=== PATIENT | female | born 1965 | race Asian ===

== ENCOUNTER 2016-04-28 08:54 | Emergency (ER) | payer SELFPAY ==
[~2016-04-28] VITALS: Ht 152.4 cm; Wt 60.0 kg
[2016-04-28 08:57] VITALS: BP 175/92; PULSE 102; RESP 16; TEMP 98.1; O2SAT 97
[2016-04-28 09:12] VITALS: BP 158/92; PULSE 76; RESP 18; O2SAT 96
[2016-04-28] MEDS ORDERED: GLYB2.5T3 PO (09:25)
[2016-04-28] MEDS ORDERED: TRAM50TA PO ×2 (09:25→12:10)
[2016-04-28] MEDS ORDERED: META1TAB19 PO (09:25)
[2016-04-28] MEDS ORDERED: NAPR500T PO (09:25)
--- NOTE | 2016-04-28 09:29 | PD ---
HPI Chief Complaint: Pain: Acute or Chronic Time Seen by Provider: 09:13 Travel History International Travel<30 days: No Contact w/Intl Traveler<30days: No Traveled to known affect area: No History of Present Illness HPI Patient is a 50-year-old female with history of chronic neuropathy, diabetes, presents to the emergency room with complaints of nerve pain. Patient reports that for the past 2 months, she has had increased numbness to her right and left lower extremity. Reports that she has increased "achyness" to her right lower extremity but no calf pain. Reports "it just feels like a nerve pain." Reports that she feels numb to the bottom of her feet, reports that this has been persistent. Patient reports that she has history of painful neuropathy, reports that sometimes she feels numbness to both her arms, reports that she was seen in urgent care previously for this, reports that she was given a prescription for some muscle relaxers, reports that the medicines helped somewhat, but only lasts for a short time. Patient reports that she is a diabetic, reports that she does not check her blood sugars, reports that her blood sugars could be high as she has not checked her sugars lately. Patient does admit to being compliant with her diabetic medications. Patient denies headache or dizziness. Patient denies vision changes. Patient denies sensation of lightheadedness. Patient denies chest pain or shortness of breath. Patient denies abdominal pain, reports some nausea with no vomiting. Patient denies fevers or chills. PFSH Past Medical History Diabetes: Yes Headaches: Yes ?: Not LMP: 2011 Past Surgical History Other Surgery: Yes (ectopic ) Family History Family History: Negative Social History Alcohol Use: No Tobacco Use: No Substance Use: No Allergies-Medications (Allergen,Severity, Reaction): Coded Allergies: No Known Allergies (Unverified , 04/28/16) Reported Meds & Prescriptions Reported Meds & Active Scripts Active Macrobid (Nitrofurantoin Monoh/Nitrofur Macro) 100 Mg Cap 100 Mg PO BID 10 Days Reported Naproxen 500 Mg Tab 500 Mg PO BID Tramadol (Tramadol HCl) 50 Mg Tab 50 Mg PO Q6H PRN Metaxalone 800 Mg Tab 800 Mg PO TID Glyburide 2.5 Mg Tab 5 Mg PO DAILY Take with meals at the same time each day Review of Systems General / Constitutional: No: Fever Eyes: No: Visual changes HENT: No: Headaches Cardiovascular: No: Chest Pain or Discomfort Respiratory: No: Shortness of Breath Gastrointestinal: Positive: Nausea, No: Abdominal Pain Genitourinary: No: Dysuria Musculoskeletal: No: Pain Skin: No Rash Neurologic: Positive: Paresthesia, No: Weakness Psychiatric: No: Depression Endocrine: No: Polydipsia Hematologic/Lymphatic: No: Easy Bruising Physical Exam Narrative GENERAL: No acute distress, nontoxic SKIN: Warm and dry. HEAD: Atraumatic. Normocephalic. EYES: Pupils equal and round. No scleral icterus. No injection or drainage. ENT: No nasal bleeding or discharge. Mucous membranes pink and moist. NECK: Trachea midline. No JVD. CARDIOVASCULAR: Regular rate and rhythm. No murmur appreciated. RESPIRATORY: No accessory muscle use. Clear to auscultation. Breath sounds equal bilaterally. GASTROINTESTINAL: Abdomen soft, non-tender, nondistended. Hepatic and splenic margins not palpable. MUSCULOSKELETAL: No obvious deformities. No clubbing. No cyanosis. No edema. NEUROLOGICAL: Awake and alert. No obvious cranial nerve deficits. Motor grossly within normal limits. Normal speech. Cranial nerves II-12 grossly intact with no obvious deficits. PSYCHIATRIC: Appropriate mood and affect; insight and judgment normal. Data Data Last Documented VS Vital Signs Date Time Temp Pulse Resp B/P Pulse Ox O2 Delivery O2 Flow Rate FiO2 04/28/16 10:29 16 04/28/16 09:20 96 04/28/16 08:57 98.1 175/92 97 Room Air Orders Electrocardiogram (04/28/16 09:19) Complete Blood Count With Diff (04/28/16 09:19) Comprehensive Metabolic Panel (04/28/16 09:19) Ecg Monitoring (04/28/16 09:19) Iv Access Insert/Monitor (04/28/16 09:19) Sodium Chloride 0.9% Flush (Ns Flush) (04/28/16 09:30) Sodium Chlorid 0.9% 500 Ml Inj (Ns 500 M (04/28/16 09:30) Ketorolac Inj (Toradol Inj) (04/28/16 09:30) Ed Urine Pregnancytest Poc (04/28/16 09:19) Sodium Chlor 0.9% 1000 Ml Inj (Ns 1000 M (04/28/16 09:45) Insulin Human Nph Inj (Novolin N Inj) (04/28/16 09:45) Urinalysis - C+S If Indicated (04/28/16 10:37) Blood Glucose (04/28/16 10:51) Blood Glucose (04/28/16 11:51) Urine Culture (04/28/16 10:00) Ceftriaxone Inj (Rocephin Inj) (04/28/16 11:30) Sodium Chlor 0.9% 1000 Ml Inj (Ns 1000 M (04/28/16 11:30) Labs Laboratory Tests Test 04/28/16 04/28/16 09:30 10:00 White Blood Count 11.1 TH/MM3 Red Blood Count 4.86 MIL/MM3 Hemoglobin 14.1 GM/DL Hematocrit 41.4 % Mean Corpuscular Volume 85.2 FL Mean Corpuscular Hemoglobin 29.0 PG Mean Corpuscular Hemoglobin 34.0 % Concent Red Cell Distribution Width 12.6 % Platelet Count 301 TH/MM3 Mean Platelet Volume 8.1 FL Neutrophils (%) (Auto) 71.8 % Lymphocytes (%) (Auto) 20.0 % Monocytes (%) (Auto) 6.2 % Eosinophils (%) (Auto) 1.3 % Basophils (%) (Auto) 0.7 % Neutrophils # (Auto) 8.0 TH/MM3 Lymphocytes # (Auto) 2.2 TH/MM3 Monocytes # (Auto) 0.7 TH/MM3 Eosinophils # (Auto) 0.1 TH/MM3 Basophils # (Auto) 0.1 TH/MM3 CBC Comment DIFF FINAL Differential Comment Sodium Level 135 MEQ/L Potassium Level 4.3 MEQ/L Chloride Level 98 MEQ/L Carbon Dioxide Level 26.6 MEQ/L Anion Gap 10 MEQ/L Blood Urea Nitrogen 14 MG/DL Creatinine 0.90 MG/DL Estimat Glomerular Filtration 67 ML/MIN Rate Random Glucose 348 MG/DL Calcium Level 9.3 MG/DL Total Bilirubin 0.6 MG/DL Aspartate Amino Transf 7 U/L (AST/SGOT) Alanine Aminotransferase 26 U/L (ALT/SGPT) Alkaline Phosphatase 106 U/L Total Protein 7.8 GM/DL Albumin 4.3 GM/DL Urine Color YELLOW Urine Turbidity HAZY Urine pH 5.5 Urine Specific [place] 1.022 Urine Protein TRACE mg/dL Urine Glucose (UA) 1000 mg/dL Urine Ketones NEG mg/dL Urine Occult Blood NEG Urine Nitrite POS Urine Bilirubin NEG Urine Urobilinogen LESS THAN 2.0 MG/DL Urine Leukocyte Esterase MOD Urine RBC 3 /hpf Urine WBC 43 /hpf Urine WBC Clumps OCC Urine Squamous Epithelial 6 /hpf Cells Urine Bacteria MANY /hpf Urine Mucus FEW /lpf Microscopic Urinalysis Comment CULTURE INDICATED MDM Medical Decision Making Medical Screen Exam Complete: Yes Emergency Medical Condition: Yes Interpretation(s) EKG at 0936: Normal sinus rhythm at 80 beats minute, QT/QTC 377/413, no acute ST or T-wave changes Vital Signs Date Time Temp Pulse Resp B/P Pulse Ox O2 Delivery O2 Flow Rate FiO2 04/28/16 08:57 98.1 102 16 175/92 97 Room Air Patient's blood sugar 348 Differential Diagnosis Diabetic neuropathy, acute on chronic pain, anxiety reaction, electrolyte abnormality, CVA, radiculopathy Narrative Course Patient is a 50-year-old female who presents to emergency room with complaints of acute on chronic neuropathy. She reports that she is chronic nerve pain to the arms and legs and feet, reports for the past 2 months, symptoms have been more persistent. Patient with no fevers or chills. Patient reports that she is a diabetic, she does not check her blood sugars at home. Patient reports that she was put on medications for muscle relaxers with little relief of symptoms, patient here for further evaluation of symptoms. 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 At that time, patient complains of fatigue, right leg cramps, aches, no pains in the legs and hands. Patient was found to have diabetes type 2 in 2008, one year later, patient then began having cramps to her legs and arms and no pains to her legs and arms. Patient was found to have uncontrolled diabetes at that time as she was on Onglyza in 2008 but was not compliant with her medications secondary to cost of medication , she was then started on glipizide for diabetes. This reports states that even on glipizide, patients diabetes has been uncontrolled. As per patient, she has not followed up with her pcp as she recently moved to the area and does not have a pcp. Plan to obtain labs and check her blood sugar and electrolytes. Will give a dose of toradol for pain and re-evaluate patient. CBC & BMP Diagram 04/28/16 09:30 Patient's blood sugar 348: Patient with most likely diabetic neuropathy with uncontrolled blood sugars. Plan to give patient IV fluids and a dose of insulin to try to bring on her sugars. Discussed with patient importance of blood sugar control and blood sugar monitoring as this can exacerbate the diabetic neuropathy. Patient with most likely uncontrolled diabetes since 2013. Patient reports that she does not have insurance and does not have a primary care doctor and cannot follow-up. I have called the ER financial counselor to try to help patient obtain assistance All labs and all studies reviewed patient in detail. Patient's symptoms most likely from hyperglycemia as blood sugar is 348 in the emergency room. Patient has been given IV fluids in ER and blood sugar has decreased to 270's. Patient also with urinary tract infection. Because of Rocephin given to patient. Plan to give patient a prescription for Macrobid, discussed with patient need to follow up with her urine cultures from today. Signs and symptoms of when to return to emergency room reviewed patient in detail. Diagnosis Primary Impression: Diabetes mellitus Qualified Code: E11.65 - Type 2 diabetes mellitus with hyperglycemia, without long-term current use of insulin Additional Impressions: Hyperglycemia Diabetic neuropathy Qualified Code: E11.42 - Diabetic polyneuropathy associated with type 2 diabetes mellitus UTI (urinary tract infection) Qualified Code: N30.01 - Acute cystitis with hematuria Patient Instructions: General Instructions Additional Instructions: Please follow-up with your primary care doctor as soon as possible Please monitor your blood sugars as your blood sugars were high today. Please follow up with cultures from today Return to ER as needed Med/Other Pt SpecificInfo: Prescription(s) given Scripts Tramadol 50 Mg Tab50 Mg PO Q4H PRN (PAIN) #12 TAB Ref 0 Prov:Maeve Hunter DO 04/28/16 Nitrofurantoin Monohydrate Macrocrystals (Macrobid)100 Mg Gnc118 Mg PO BID 10 Days Ref 0 Prov:Maeve Hunter DO 04/28/16 Disposition: 01 DISCHARGE HOME Condition: Stable Maeve Hunter DO Apr 28, 2016 09:29
[2016-04-28] MEDS ORDERED: KETOROLAC TROMETHAMINE 30 MG/ML (IVP) VIAL IV PUSH ONE (09:30)
[2016-04-28] MEDS ORDERED: SODIUM CHLORID 0.9% 500 ML INJ 500 ML IV ONE (09:30)
[2016-04-28] MEDS ORDERED: SODIUM CHLORIDE 0.9% FLUSH 5 ML FLUSH IVF PRN (09:30)
[2016-04-28] MEDS ORDERED: INSULIN HUMAN NPH 1,000 UNITS/10 ML VIAL SQ ONE (09:45)
[2016-04-28] MEDS ORDERED: SODIUM CHLOR 0.9% 1000 ML INJ 1,000 ML IV ONE ×2 (09:45→11:30)
[2016-04-28 09:50] LABS: BASOPHIL # 0.1 TH/MM3 (0-0.2); BASOPHIL % 0.7 % (0.0-2.0); EOSINOPHIL # 0.1 TH/MM3 (0-0.4); EOSINOPHIL % 1.3 % (0.0-4.0); HEMATOCRIT 41.4 % (35.0-46.0); HEMO FLAGS DIFF FINAL; LYMPHOCYTE # 2.2 TH/MM3 (1.0-4.8); MEAN CELL VOLUME 85.2 FL (80.0-100.0); MONO % 6.2 % (0.0-8.0); NEUT % 71.8 % (16.0-70.0); PLATELET COUNT 301 TH/MM3 (150-450); RED BLOOD COUNT 4.86 MIL/MM3 (4.00-5.30); RED CELL DISTRIBUTION WIDTH 12.6 % (11.6-17.2); WHITE BLOOD COUNT 11.1 TH/MM3 (4.0-11.0)
[2016-04-28 10:08] LABS: ANION GAP 10 MEQ/L (5-15); AST (GOT) 7 U/L (15-37); BICARBONATE 26.6 MEQ/L (21.0-32.0); BLOOD UREA NITROGEN 14 MG/DL (7-18); CHLORIDE 98 MEQ/L (98-107); GLOMERULAR FILTRATION RATE 67 ML/MIN (>89); POTASSIUM 4.3 MEQ/L (3.5-5.1); SODIUM (NA) 135 MEQ/L (136-145)
[2016-04-28 10:12] LABS: ALKALINE PHOSPHATASE 106 U/L (45-117); ALT (GPT) 26 U/L (10-53); TOTAL BILIRUBIN ADULT 0.6 MG/DL (0.2-1.0)
[2016-04-28 11:00] VITALS: BP 134/71; PULSE 74; RESP 18; O2SAT 96
[2016-04-28 11:13] LABS: BACTERIA, URINE MANY /hpf; BLOOD, URINE NEG (NEG); COMMENT (UR) CULTURE INDICATED; CULTURE IF INDICATED CULTURE INDICATED; GLUCOSE,URINE 1000 mg/dL (NEG); KETONE, URINE NEG (NEG); MUCUS URINE FEW /lpf (OCC); NITRITE,URINE POS (NEG); PH, URINE 5.5 (5.0-8.5); SQUAMOUS EPITHELIAL CELL URINE 6 /hpf (0-5); URINE COLOR YELLOW (YELLW/STRAW)
[2016-04-28] MEDS ORDERED: cefTRIAXone INJ 1,000 MG in SODIUM CHLORIDE 0.9% INJ 100 ML IV ONE (11:30)
[2016-04-28] MEDS ORDERED: MACR100C2 PO (11:31)
[2016-04-28 12:37] VITALS: BP 117/63; PULSE 67; RESP 18; O2SAT 95
[2016-04-28 13:24] VITALS: BP 140/77; TEMP 97.8
--- NOTE | 2016-04-28 17:58 | EKG ---
Date Performed: 04/28/2016 Time Performed: 09:36:46 PTAGE: 50 years EKG: Sinus rhythm NORMAL ECG NO PREVIOUS TRACING DOCTOR: Terra Andersen Interpretating Date/Time 04/28/2016 17:57:44
== END 2016-04-28 13:55 | disposition home or self-care (01) ==
LOC: NEPA 08:54
DX: E11.65 Type 2 diabetes mellitus with hyperglycemia (principal); E11.42 Type 2 diabetes mellitus with diabetic polyneuropathy; N30.01 Acute cystitis with hematuria; B96.20 Unspecified Escherichia coli [E. coli] as the cause of diseases classified elsewhere; Z79.84 Long term (current) use of oral hypoglycemic drugs
CPT/HCPCS: 80053; 81001; 84703; 85025; 87077; 87086; 87186; 93005; 96361; 96365; 96372; 96375; 99284; J0696; J1815; J1885; J7030; J7040

== ENCOUNTER 2018-03-08 14:09 | Inpatient (IN) ==
[2018-03-08] MEDS ORDERED: Sod Chloride 0.9% Inj 1,000 ML IV.SIG ONE (15:46)
[2018-03-08 16:05] LABS: Baso % (Auto) 0.3 % (0.0-2.0); Eos # (Auto) 0.1 th/mm3 (0.0-0.4); Eos % (Auto) 0.9 % (0.0-4.0); Hematocrit 34.9 % (35.0-46.0); Hemoglobin 11.8 gm/dL (11.6-15.3); Lymph # (Auto) 1.9 th/mm3 (1.0-4.8); Lymph % (Auto) 16.7 % (9.0-44.0); Mean Corpuscular HGB Conc 33.7 % (32.0-36.0); Mean Corpuscular Hemoglobin 28.8 pg (27.0-34.0); Mean Corpuscular Volume 85.4 fL (80.0-100.0); Mean Platelet Volume 7.7 fL (7.0-11.0); Mono % (Auto) 8.9 % (0.0-8.0); Neut # (Auto) 8.3 th/mm3 (1.8-7.7); Neut % (Auto) 73.2 % (16.0-70.0); Platelet Count 327 th/mm3 (150-450); Red Blood Count 4.08 mil/mm3 (4.00-5.30); Red Cell Distribution Width 12.2 % (11.6-17.2); White Blood Count 11.3 th/mm3 (4.0-11.0)
[2018-03-08 16:10] LABS: Bilirubin,Urine Negative (Negative); Clarity,Urine Slightly Cloudy (Clear); Color,Urine Yellow (Yellw/Straw); Leukocyte Esterase,Urine Negative (Negative); Nitrite,Urine Negative (Negative); Urobilinogen,Urine 0.2 mg/dL (Less than 2)
[2018-03-08 16:11] LABS: Chloride 105 meq/L (98-107); Potassium 3.1 meq/L (3.5-5.1); Sodium 138 meq/L (136-145)
[2018-03-08 16:15] LABS: Anion Gap 10 meq/L (5-15); Calcium 8.8 mg/dL (8.5-10.1); Carbon Dioxide 23.4 meq/L (21.0-32.0); Glucose,Random 239 mg/dL (74-106); Lipase 75 U/L (73-393)
[2018-03-08 16:16] LABS: Blood Urea Nitrogen 10 mg/dL (7-18)
--- NOTE | 2018-03-08 16:17 | XR ---
EXAM DATE: 03/08/2018 4:14 PM EST AGE/SEX: 52 years / Female INDICATIONS: Cough and congestion. CLINICAL DATA: This is the patient's initial encounter. Patient reports that signs and symptoms have been present for 2 days and indicates a pain score of 3/10. MEDICAL/SURGICAL HISTORY: Diabetes. None. COMPARISON: No prior exams available for comparison. FINDINGS: A single AP view of the chest demonstrates the lungs to be symmetrically aerated without evidence of mass, infiltrate or effusion. The cardiomediastinal contours are unremarkable. Osseous structures a re intact. CONCLUSION: No evidence of acute cardiopulmonary process. Electronically signed by: Lorenzo Pena MD 03/08/2018 4:16 PM EST
[2018-03-08 16:18] LABS: Alanine Aminotransferase 91 U/L (10-53); Aspartate Aminotransferase 30 U/L (15-37); Glomerular Filtration Rate Greater Than 89 mL/min (>89)
[2018-03-08 16:20] LABS: Total Protein 6.9 g/dL (6.4-8.2)
[2018-03-08 16:21] LABS: Alkaline Phosphatase 209 U/L (45-117)
--- NOTE | 2018-03-08 16:25 | ED ---
HPI General Chief complaint: Fever Stated complaint: high blood sugar Time Seen by Provider: 03/08/18 15:09 History of Present Illness HPI narrative: 52-year-old female history of diabetes here for evaluation of fever. Patient takes glipizide for her diabetes, has not been taking her medications for the last few months, reports fever on and off for the last week , no cough or runny nose, no chest pain or shortness of breath. She reports UTI symptoms including burning urgency and frequency urination. Related Data Home Medications Medication Instructions Recorded Confirmed No Known Home Medications 03/08/18 03/08/18 Allergies Allergy/AdvReac Type Severity Reaction Status Date / Time No Known Allergies Allergy Verified 03/08/18 14:19 Review of Systems ROS: all other systems reviewed are negative [facility] Medical History Medical History Back pain (Acute) Diabetes (Acute) Nerve pain (Acute) Surgical History Surgical History Ectopic (Acute) Family History Family History Father Family history of hypertension Social History Social History Substance History: No History of Abuse Second Hand Smoke Exposure: No Smoking Status: Never smoker How Often Do You Have a Drink Containing Alcohol: Never Recent Travel in [facility] within the Last 8 Weeks: No Recent Out of Country Travel within the Last 8 Weeks: No Immunization History Tetanus Immunization: Unsure Exam Narrative Exam Narrative: GENERAL: Alert oriented x3 no acute distress. SKIN: Focused skin assessment warm/dry. HEAD: Atraumatic. Normocephalic. EYES: Pupils equal and round. No scleral icterus. No injection or drainage. ENT: No nasal bleeding or discharge. Mucous membranes pink and moist. NECK: Trachea midline. No JVD. CARDIOVASCULAR: Regular rate and rhythm. No murmur appreciated. RESPIRATORY: No accessory muscle use. Clear to auscultation. Breath sounds equal bilaterally. GASTROINTESTINAL: Abdomen soft, non-tender, nondistended. Hepatic and splenic margins not palpable. MUSCULOSKELETAL: No obvious deformities. No clubbing. No cyanosis. No edema. NEUROLOGICAL: Awake and alert. No obvious cranial nerve deficits. Motor grossly within normal limits. Normal speech. PSYCHIATRIC: Appropriate mood and affect; insight and judgment normal. Course Initial Documented Vital Signs Temperature 100.7 F H 03/08/18 14:13 Pulse Rate 97 H 03/08/18 14:13 Respiratory Rate 16 03/08/18 14:13 Blood Pressure 184/81 H 03/08/18 14:13 Pulse Oximetry 96 03/08/18 14:13 Last Documented Vital Signs Temperature 100.6 F H 03/09/18 00:00 Pulse Rate 92 H 03/09/18 00:00 Respiratory Rate 16 03/09/18 00:00 Blood Pressure 132/68 03/09/18 00:00 Pulse Oximetry 97 03/09/18 00:00 Medical Decision Making MDM Narrative Medical decision making narrative: 52 female here for evaluation fever on and off for the last week, UTI symptoms burning urgency and frequency urination, she has right upper quadrant pain on exam, no rebound tenderness, she is febrile of 102.9 Fahrenheit, tachycardic 106, she is sick appearing, labs show leukocytosis with left shift, there is elevated LFTs, CAT scan shows evidence of cholecystitis, pending ultrasound but patient needs to be admitted. blood cultures x2, emperic rocephen, IVF given. hypokalemia and received 40meq po. Medical Screen Exam Complete: Yes Emergency Medical Condition: Yes Lab Data Result diagrams: 03/09/18 06:32 03/09/18 06:32 Lab Results 03/08/18 03/08/18 03/08/18 Range/Units 14:19 15:50 15:50 CBC w Diff Auto diff final WBC 11.3 H (4.0-11.0) th/mm3 RBC 4.08 (4.00-5.30) mil/mm3 Hgb 11.8 (11.6-15.3) gm/dL Hct 34.9 L (35.0-46.0) % MCV 85.4 (80.0-100.0) fL MCH 28.8 (27.0-34.0) pg MCHC 33.7 (32.0-36.0) % RDW 12.2 (11.6-17.2) % Plt Count 327 (150-450) th/mm3 MPV 7.7 (7.0-11.0) fL Neut % (Auto) 73.2 H (16.0-70.0) % Lymph % (Auto) 16.7 (9.0-44.0) % Bee % (Auto) 8.9 H (0.0-8.0) % Eos % (Auto) 0.9 (0.0-4.0) % Baso % (Auto) 0.3 (0.0-2.0) % Neut # (Auto) 8.3 H (1.8-7.7) th/mm3 Lymph # (Auto) 1.9 (1.0-4.8) th/mm3 Bee # (Auto) 1.0 H (0.0-0.9) th/mm3 Eos # (Auto) 0.1 (0.0-0.4) th/mm3 Baso # (Auto) 0.0 (0.0-0.2) th/mm3 WBC Differential . Differential Comment . Sodium 138 (136-145) meq/L Potassium 3.1 L (3.5-5.1) meq/L Chloride 105 (98-107) meq/L Carbon Dioxide 23.4 (21.0-32.0) meq/L Anion Gap 10 (5-15) meq/L BUN 10 (7-18) mg/dL Creatinine 0.56 (0.50-1.00) mg/dL Estimated GFR Greater than 89 (>89) mL/min POC Glucose 286 H (68-110) mg/dl Random Glucose 239 H (74-106) mg/dL Lactic Acid (0.4-2.0) mmol/L Calcium 8.8 (8.5-10.1) mg/dL Total Bilirubin 0.3 (0.2-1.0) mg/dL AST 30 (15-37) U/L ALT 91 H (10-53) U/L Alkaline Phosphatase 209 H (45-117) U/L Total Protein 6.9 (6.4-8.2) g/dL Albumin 3.0 L (3.4-5.0) g/dL Lipase 75 (73-393) U/L Urine Color (Yellw/Straw) Urine Clarity (Clear) Urine pH (5.0-8.5) Ur Specific [place] (1.002-1.035) Urine Protein (Neg-Trace) mg/dL Urine Glucose (UA) (Negative) mg/dL Urine Ketones (Negative) mg/dL Urine Occult Blood (Negative) Urine Nitrate (Negative) Urine Bilirubin (Negative) Urine Urobilinogen (Less than 2) mg/dL Ur Leukocyte Esterase (Negative) Urine RBC (0-3) /hpf Urine WBC (0-5) /hpf Urine WBC Clumps (None) Ur Squamous Epith Cells (0-5) /hpf Urine Bacteria (None) /hpf Urine Mucus (Occasional) /lpf Micro UA Comment Ur Microscopic Review Urine Culture Comments 03/08/18 03/08/18 03/09/18 Range/Units 15:50 15:50 06:32 CBC w Diff Auto diff final WBC 13.7 H (4.0-11.0) th/mm3 RBC 3.65 L (4.00-5.30) mil/mm3 Hgb 10.9 L (11.6-15.3) gm/dL Hct 31.7 L (35.0-46.0) % MCV 86.9 (80.0-100.0) fL MCH 30.0 (27.0-34.0) pg MCHC 34.5 (32.0-36.0) % RDW 12.4 (11.6-17.2) % Plt Count 326 (150-450) th/mm3 MPV 8.3 (7.0-11.0) fL Neut % (Auto) 76.3 H (16.0-70.0) % Lymph % (Auto) 15.4 (9.0-44.0) % Bee % (Auto) 7.5 (0.0-8.0) % Eos % (Auto) 0.3 (0.0-4.0) % Baso % (Auto) 0.5 (0.0-2.0) % Neut # (Auto) 10.5 H (1.8-7.7) th/mm3 Lymph # (Auto) 2.1 (1.0-4.8) th/mm3 Bee # (Auto) 1.0 H (0.0-0.9) th/mm3 Eos # (Auto) 0.0 (0.0-0.4) th/mm3 Baso # (Auto) 0.1 (0.0-0.2) th/mm3 WBC Differential . Differential Comment . Sodium (136-145) meq/L Potassium (3.5-5.1) meq/L Chloride (98-107) meq/L Carbon Dioxide (21.0-32.0) meq/L Anion Gap (5-15) meq/L BUN (7-18) mg/dL Creatinine (0.50-1.00) mg/dL Estimated GFR (>89) mL/min POC Glucose (68-110) mg/dl Random Glucose (74-106) mg/dL Lactic Acid 0.6 (0.4-2.0) mmol/L Calcium (8.5-10.1) mg/dL Total Bilirubin (0.2-1.0) mg/dL AST (15-37) U/L ALT (10-53) U/L Alkaline Phosphatase (45-117) U/L Total Protein (6.4-8.2) g/dL Albumin (3.4-5.0) g/dL Lipase (73-393) U/L Urine Color Yellow (Yellw/Straw) Urine Clarity Slightly cloudy (Clear) Urine pH 6.0 (5.0-8.5) Ur Specific [place] 1.020 (1.002-1.035) Urine Protein 30 H (Neg-Trace) mg/dL Urine Glucose (UA) 1000 or greater H (Negative) mg/dL Urine Ketones 15 H (Negative) mg/dL Urine Occult Blood Negative (Negative) Urine Nitrate Negative (Negative) Urine Bilirubin Negative (Negative) Urine Urobilinogen 0.2 (Less than 2) mg/dL Ur Leukocyte Esterase Negative (Negative) Urine RBC 0-3 (0-3) /hpf Urine WBC 6-8 H (0-5) /hpf Urine WBC Clumps Rare H (None) Ur Squamous Epith Cells 0-5 (0-5) /hpf Urine Bacteria Many H (None) /hpf Urine Mucus Rare H (Occasional) /lpf Micro UA Comment Culture indicated Ur Microscopic Review Microscopic reviewed Urine Culture Comments Culture indicated 03/09/18 Range/Units 06:32 CBC w Diff WBC (4.0-11.0) th/mm3 RBC (4.00-5.30) mil/mm3 Hgb (11.6-15.3) gm/dL Hct (35.0-46.0) % MCV (80.0-100.0) fL MCH (27.0-34.0) pg MCHC (32.0-36.0) % RDW (11.6-17.2) % Plt Count (150-450) th/mm3 MPV (7.0-11.0) fL Neut % (Auto) (16.0-70.0) % Lymph % (Auto) (9.0-44.0) % Bee % (Auto) (0.0-8.0) % Eos % (Auto) (0.0-4.0) % Baso % (Auto) (0.0-2.0) % Neut # (Auto) (1.8-7.7) th/mm3 Lymph # (Auto) (1.0-4.8) th/mm3 Bee # (Auto) (0.0-0.9) th/mm3 Eos # (Auto) (0.0-0.4) th/mm3 Baso # (Auto) (0.0-0.2) th/mm3 WBC Differential Differential Comment Sodium 138 (136-145) meq/L Potassium 3.0 L (3.5-5.1) meq/L Chloride 105 (98-107) meq/L Carbon Dioxide 21.3 (21.0-32.0) meq/L Anion Gap 12 (5-15) meq/L BUN 7 (7-18) mg/dL Creatinine 0.58 (0.50-1.00) mg/dL Estimated GFR Greater than 89 (>89) mL/min POC Glucose (68-110) mg/dl Random Glucose 227 H (74-106) mg/dL Lactic Acid (0.4-2.0) mmol/L Calcium 8.2 L (8.5-10.1) mg/dL Total Bilirubin 0.5 (0.2-1.0) mg/dL AST 18 (15-37) U/L ALT 70 H (10-53) U/L Alkaline Phosphatase 182 H (45-117) U/L Total Protein 6.4 (6.4-8.2) g/dL Albumin 2.7 L (3.4-5.0) g/dL Lipase (73-393) U/L Urine Color (Yellw/Straw) Urine Clarity (Clear) Urine pH (5.0-8.5) Ur Specific [place] (1.002-1.035) Urine Protein (Neg-Trace) mg/dL Urine Glucose (UA) (Negative) mg/dL Urine Ketones (Negative) mg/dL Urine Occult Blood (Negative) Urine Nitrate (Negative) Urine Bilirubin (Negative) Urine Urobilinogen (Less than 2) mg/dL Ur Leukocyte Esterase (Negative) Urine RBC (0-3) /hpf Urine WBC (0-5) /hpf Urine WBC Clumps (None) Ur Squamous Epith Cells (0-5) /hpf Urine Bacteria (None) /hpf Urine Mucus (Occasional) /lpf Micro UA Comment Ur Microscopic Review Urine Culture Comments Imaging Data Radiologist's impression: Chest X-Ray 03/08/18 15:46 CONCLUSION: No evidence of acute cardiopulmonary process. Abdomen/Pelvis CT 03/08/18 17:04 CONCLUSION: 1. CT findings suggest acute cholecystitis in the proper clinical setting. No abscess. No perceptible stone. No ductal dilatation. 2. Normal appendix. 3. Several unusual scattered areas of low density involving the inferior half of the left kidney, nonspecific. These may be atypical CT appearance of cysts or the sequela of previous infection. Neoplasm considered unlikely. Also would not be typical of acute infection but do please correlate clinically and with urinalysis. 4. Tiny effusions of both lung bases and a very small pericardial effusion. 5. Scattered benign and chronic appearing hypertrophic bone changes of the visualized thoracic spine. Gallbladder Ultrasound 03/08/18 18:51 CONCLUSION: 1. Echogenic enlarged liver most consistent with hepatic steatosis versus medical liver disease. 2. Focal 3.3 region of slightly decreased echogenicity in the caudate does not correspond to focal abnormality on CT exam. This likely reflects focal fatty sparing. Further evaluation may be performed with outpatient Eovist MRI examination if patient has a history of hepatitis or is at significantly increased risk for hepatocellular carcinoma. 3. Adherent 6 mm gallstone versus polyp in the gallbladder with diffuse gallbladder wall thickening. Findings are commonly seen in the setting of chronic liver disease but limit sonographic sensitivity for acute cholecystitis. HIDA scan apparently has been already noted. Discharge Plan Physicians Team ED Provider: Aquilino Barajas Primary Care Provider: Primary Care Monserrat Leavitt Attending Provider: Willian Wilks Other Providers: Christo Mckeon Status ED Status: Left Department Discharge Information Discharge Date/Time: 03/08/18 21:12
[2018-03-08 16:26] LABS: Bacteria,Urine Many /hpf; Mucus,Urine Rare /lpf (Occasional); RBC,Urine 0-3 /hpf (0-3); Squamous Epithelial Cell,Urine 0-5 /hpf (0-5)
[2018-03-08] MEDS ORDERED: Ketorolac Inj 30 MG/ML (IVP) Vial IV.PUSH STA (17:36)
--- NOTE | 2018-03-08 18:45 | CT ---
EXAM DATE: 03/08/2018 6:32 PM EST AGE/SEX: 52 years / Female INDICATIONS: Right lower quadrant pain. Fever. CLINICAL DATA: This is the patient's initial encounter. Patient reports that signs and symptoms have been present for 1 month and indicates a pain score of 10/10. MEDICAL/SURGICAL HISTORY: Diabetes. None. ORAL CONTRAST: No oral contrast ingested. RADIATION DOSE: 4.61 CTDI (mGy) COMPARISON: No prior exams available for comparison. TECHNIQUE: Multiple contiguous axial images were obtained through the abdomen and pelvis following b olus infusion of 90 ml Omnipaque 350 (iohexol) nonionic water-soluble contrast as a single exam dos e. No oral contrast ingested. Using automated exposure control and adjustment of the mA and/or kV ac cording to patient size, radiation dose was kept as low as reasonably achievable to obtain optimal di agnostic quality images. DICOM format image data is available electronically for review and comparis on. FINDINGS: Appendix is normal. There is gallbladder wall thickening and pericholecystic fluid. Also trace fluid in Morison's pouch. No organized or drainable fluid. Other than mild enlargement and focal fatty infiltration adjacent to the falciform ligament, the liver is within normal limits. No ductal dilatation. No perceptible ston es. Spleen, pancreas and adrenal glands are normal. The right kidney is within normal limits. Several sca ttered hypoattenuating vague areas are seen of the left kidney, 2.7 cm posteriorly of the mid zone to lower pole, 1.5 cm laterally of the lower pole and 2.3 cm of the inferior tip of the lower pole. A 6 mm cyst is also seen laterally of the mid zone. No obstruction or acute inflammatory changes are seen of the gastrointestinal tract. Reproductive org ans are within normal limits. Trace pleural fluid in both visualized lung bases. There is also a tiny pericardial effusion. No acute bony abnormality demonstrated. There is considerable ossification of the posterior longitudi nal ligament partly seen in the lower thoracic spine. Also hypertrophic changes around the facets at T11/T12. CONCLUSION: 1. CT findings suggest acute cholecystitis in the proper clinical setting. No abscess. No perceptibl e stone. No ductal dilatation. 2. Normal appendix. 3. Several unusual scattered areas of low density involving the inferior half of the left kidney, no nspecific. These may be atypical CT appearance of cysts or the sequela of previous infection. Gisel durant considered unlikely. Also would not be typical of acute infection but do please correlate clinicall y and with urinalysis. 4. Tiny effusions of both lung bases and a very small pericardial effusion. 5. Scattered benign and chronic appearing hypertrophic bone changes of the visualized thoracic spine . Electronically signed by: Aryan Oscar MD 03/08/2018 6:44 PM EST
[2018-03-08] MEDS ORDERED: Bisacodyl 10 MG Supp RECTAL PRN (19:06)
[2018-03-08] MEDS ORDERED: Sod Chloride 0.9% Inj 1,000 ML IV.CONT SCH (19:15)
[2018-03-08] MEDS: Morphine Sulfate Inj 2 MG/ML Vial IV.PUSH PRN ×2 (19:31→23:43)
--- NOTE | 2018-03-08 21:25 | US ---
EXAM DATE: 03/08/2018 9:18 PM EST AGE/SEX: 52 years / Female INDICATIONS: Abdominal pain. CLINICAL DATA: This is the patient's initial encounter. Patient reports that signs and symptoms have been present for 1 month and indicates a pain score of 10/10. MEDICAL/SURGICAL HISTORY: . Type II diabetes. None. COMPARISON: [facility], CT ABDOMEN & PELVIS W CONTRAST, 03/08/2018. . MEASUREMENTS: Liver:__ 17.22 cm. Common Bile Duct:__ 5mm. FINDINGS: Liver: Diffusely increased hepatic echogenicity without volume loss or intrahepatic ductal dilatatio n. Focal 3.3 cm region of slightly decreased echogenicity in the caudate not corresponding to a focal abnormality on CT exam. Portal Vein: Hepatopedal flow seen in portal vein. Common Duct: No intraluminal mass or stone visualized. Gallbladder: Echogenic nonmobile focus in the gallbladder measuring 6 mm. Gallbladder wall thickenin g measuring up to 7 mm. No pericholecystic fluid or sonographic Diaz sign. Pancreas: The visualized portions are within normal limits Right Kidney: Normal echotexture and cortical thickness. No mass or hydronephrosis. Other: None. CONCLUSION: 1. Echogenic enlarged liver most consistent with hepatic steatosis versus medical liver disease. 2. Focal 3.3 region of slightly decreased echogenicity in the caudate does not correspond to focal a bnormality on CT exam. This likely reflects focal fatty sparing. Further evaluation may be performed with outpatient Eovist MRI examination if patient has a history of hepatitis or is at significantly i ncreased risk for hepatocellular carcinoma. 3. Adherent 6 mm gallstone versus polyp in the gallbladder with diffuse gallbladder wall thickening. Findings are commonly seen in the setting of chronic liver disease but limit sonographic sensitivity for acute cholecystitis. HIDA scan apparently has been already noted. Electronically signed by: Esequiel Hawkins MD 03/08/2018 9:24 PM EST
[2018-03-08] MEDS: Senna/Docusate Sodium 8.6/50 MG Tablet PO SCH (21:49)
[2018-03-09] MEDS: Piperacil/Tazo 3.375 GM Premix 50 ML IV.SIG SCH ×4 (00:48→20:12)
[2018-03-09] MEDS: Morphine Sulfate Inj 2 MG/ML Vial IV.PUSH PRN ×2 (05:06→20:26)
[2018-03-09] MEDS ORDERED: Acetaminophen 325 MG Tablet PO ONE (06:24)
[2018-03-09 07:37] LABS: Baso # (Auto) 0.1 th/mm3 (0.0-0.2); Baso % (Auto) 0.5 % (0.0-2.0); Eos % (Auto) 0.3 % (0.0-4.0); Hematocrit 31.7 % (35.0-46.0); Hemoglobin 10.9 gm/dL (11.6-15.3); Lymph # (Auto) 2.1 th/mm3 (1.0-4.8); Lymph % (Auto) 15.4 % (9.0-44.0); Mean Corpuscular HGB Conc 34.5 % (32.0-36.0); Mean Corpuscular Volume 86.9 fL (80.0-100.0); Mean Platelet Volume 8.3 fL (7.0-11.0); Mono % (Auto) 7.5 % (0.0-8.0); Neut # (Auto) 10.5 th/mm3 (1.8-7.7); Neut % (Auto) 76.3 % (16.0-70.0); Platelet Count 326 th/mm3 (150-450); Red Blood Count 3.65 mil/mm3 (4.00-5.30); Red Cell Distribution Width 12.4 % (11.6-17.2); White Blood Count 13.7 th/mm3 (4.0-11.0)
--- NOTE | 2018-03-09 07:37 | P.HP ---
History of Present Illness Primary Care Physician: No Primary Care Physician Chief Complaint: Fever, leg pains, elevated glucose History of Present Illness: 52-year-old female with known history of diabetes who presented to the hospital because of intermittent fever, abdominal pain. Information was taken from patient and significant other at bedside. Indicated that she has been experiencing intermittent fevers for the last month with lower extremity pain. I have been monitoring her blood glucose and then noticed it was 280 yesterday and they contacted a friend who is a nurse in they are concerned that it has been running elevated lately so they brought her to the hospital for evaluation. On presentation the patient was febrile. She had workup done in emergency department and found to have sepsis by criteria. Further workup did indicate acute cholecystitis, urinary tract infection. Patient indicates that she has been having right-sided and suprapubic abdominal pain. Patient appears very lethargic and warm to the touch this morning. Patient was admitted with empirical antibiotics and general surgery consult. Patient denies any nausea, vomiting, diarrhea, constipation, melena, hematochezia. - Diagnosis (1) Sepsis (2) Acute cholecystitis (3) Urinary tract infection (4) Hypokalemia (5) Hyperglycemia Review of Systems All other systems reviewed negative except as stated in HPI Constitutional: Reports fever(s) Gastrointestinal: Reports abdominal pain PMFSH - History History Provided By: Patient - Medical History Medical History: Medical History (Last Updated 03/08/18 @ 15:15 by Lin Blanca RN) Back pain Diabetes Nerve pain - Surgical History Surgical History: Surgical History (Last Updated 03/09/18 @ 07:31 by PATRICIA Bowen) Ectopic - Family History Family History: Family History (Last Updated 03/09/18 @ 07:31 by PATRICIA Bowen) Father Family history of hypertension - Tobacco History Second Hand Smoke Exposure: No Tobacco Use In Past 30 Days: No Smoking Status: Never smoker - Alcohol History How Often Do You Have a Drink Containing Alcohol: Never - Substance Use History Substance History: No History of Abuse - Travel History Recent Travel in the [place] Within the Last 8 Weeks: No Recent Travel Out of the Country Within the Last 8 Weeks: No - Immunization History Tetanus Immunization: Unsure Medications and Allergies Active Medications: Active Medications Acetaminophen (Tylenol) 500 mg PO Q6H PRN PRN Reason: HEADACHE OR TEMP > 101 F Al Hydroxide/Mg Hydroxide (Milk Of Magnesia Liq) 30 ml PO Q12H PRN PRN Reason: Mild Constipation Bisacodyl (Dulcolax Supp) 10 mg RECTAL DAILY PRN PRN Reason: SEVERE CONSITIPATION Sodium Chloride (Ns Inj) 1,000 mls @ 70 mls/hr IV.CONT .[id number] [facility] Last Admin: 03/08/18 19:30 Dose: 70 mls/hr Piperacillin/Tazobactam/Dextrose (Zosyn 3.375 Gm Premix) 50 mls @ 100 mls/hr IV.SIG Q6H [facility] Last Infusion: 03/09/18 05:44 Dose: Infused Lactulose (Lactulose Liq) 30 ml PO DAILY PRN PRN Reason: SEVERE CONSITIPATION Morphine Sulfate (Morphine Inj) 2 mg IV.PUSH Q4H PRN PRN Reason: pain 6-10 Last Admin: 03/09/18 05:06 Dose: 2 mg Ondansetron HCl (Zofran Inj) 4 mg IV.PUSH Q6H PRN PRN Reason: NAUSEA OR VOMITING Last Admin: 03/09/18 05:05 Dose: 4 mg Senna/Docusate Sodium (Mariam-Colace) 1 tab PO BID [facility] Last Admin: 03/08/18 21:49 Dose: 1 tab Sennosides (Senokot) 17.2 mg PO Q12H PRN PRN Reason: Moderate Constipation Allergies Allergy/AdvReac Type Severity Reaction Status Date / Time No Known Allergies Allergy Verified 03/08/18 14:19 Home Medications Medication Instructions Recorded Confirmed Type No Known Home Medications 03/08/18 03/08/18 History Exam Vital signs: Vital Signs 03/08/18 14:13 03/08/18 15:44 03/08/18 17:06 Temperature 100.7 F H 99.9 F H 99 F Pulse Rate 97 H 84 93 H Respiratory Rate 16 16 18 Blood Pressure 184/81 H 152/87 H 154/73 H Pulse Oximetry 96 96 99 03/08/18 18:12 03/08/18 19:37 03/08/18 21:10 Temperature 102.9 F H 100.9 F H 99.1 F Pulse Rate 106 H 90 75 Respiratory Rate 16 16 16 Blood Pressure 149/73 H 132/64 114/61 Pulse Oximetry 94 L 95 95 03/09/18 00:00 Temperature 100.6 F H Pulse Rate 92 H Respiratory Rate 16 Blood Pressure 132/68 Pulse Oximetry 97 Intake & Output 03/08/18 03/09/18 03/09/18 18:59 06:59 18:59 Intake Total 1000 / 1000 200 / 200 Balance 1000 / 1000 200 / 200 Weight 51 kg 50.7 kg Intake: IV 1000 / 1000 200 / 200 Zosyn 3.375 GM Premix 50 ML @ 100 / 100 100 mls/hr IV.SIG Q6H RAJIV Rx#: [id number] NS Inj 1,000 ML @ Wide Open IV. 1000 / 1000 SIG BOLUS ONE Rx#:[id number] Rocephin Inj 1,000 MG In NS Inj 100 / 100 100 ML @ 200 mls/hr IV.SIG ONCE ONE Rx#:[id number] Other: # Voids 2 Weight On Admission 50.023 kg Narrative: GENERAL: Well-developed, well-nourished, in no acute distress. alert and orientated. Patient is very warm to the touch HEENT: Head is normocephalic without any lesions or masses noted. Facial features are symmetric. Eyes: Pupils equal round reactive to light. Extraocular muscles are intact. Conjunctivae were clear. Oropharyngeal: Pharynx without any erythema edema. Tongue is midline without deviation. Buccal mucosa is moist without any masses or lesions NECK: Supple without any masses. Trachea midline no deviation. No JVD, no bruits are appreciated CARDIAC: Regular rhythm, regular rate. S1/S2 are heard. 2/6 ejection murmur, no gallops or rubs. LUNGS: Clear to auscultation bilaterally. No wheeze, rhonchi or rales. No use of accessory muscles on inspiration or expiration. ABDOMEN: Soft, diffuse tenderness but pain noted in the suprapubic area as well as right upper quadrant with positive Diaz sign.. Nondistended. Bowel sounds heard in all 4 quadrants. No organomegaly or masses. Negative rebound, positive guarding EXTREMITIES: No edema, pulses are equal bilaterally. No cyanosis or clubbing NEUROLOGY: Mood and affect appear appropriate. Cranial nerves II through XII grossly intact. Muscle strength 5/5 in upper and lower extremities bilaterally. Deep tendon reflexes are 2+ in upper and lower extremities bilaterally. Results - Labs CBC & Chem 7: 03/09/18 06:32 03/09/18 06:32 Labs: Laboratory Results - last 24 hr 03/08/18 03/08/18 03/08/18 14:19 15:50 15:50 CBC w Diff Auto diff final WBC 11.3 H RBC 4.08 Hgb 11.8 Hct 34.9 L MCV 85.4 MCH 28.8 MCHC 33.7 RDW 12.2 Plt Count 327 MPV 7.7 Neut % (Auto) 73.2 H Lymph % (Auto) 16.7 [place] % (Auto) 8.9 H Eos % (Auto) 0.9 Baso % (Auto) 0.3 Neut # (Auto) 8.3 H Lymph # (Auto) 1.9 [place] # (Auto) 1.0 H Eos # (Auto) 0.1 Baso # (Auto) 0.0 WBC Differential . Differential Comment . Sodium 138 Potassium 3.1 L Chloride 105 Carbon Dioxide 23.4 Anion Gap 10 BUN 10 Creatinine 0.56 Estimated GFR Greater than 89 POC Glucose 286 H Random Glucose 239 H Lactic Acid Calcium 8.8 Total Bilirubin 0.3 AST 30 ALT 91 H Alkaline Phosphatase 209 H Total Protein 6.9 Albumin 3.0 L Lipase 75 Urine Color Urine Clarity Urine pH Ur Specific [place] Urine Protein Urine Glucose (UA) Urine Ketones Urine Occult Blood Urine Nitrate Urine Bilirubin Urine Urobilinogen Ur Leukocyte Esterase Urine RBC Urine WBC Urine WBC Clumps Ur Squamous Epith Cells Urine Bacteria Urine Mucus Micro UA Comment Ur Microscopic Review Urine Culture Comments 03/08/18 03/08/18 15:50 15:50 CBC w Diff WBC RBC Hgb Hct MCV MCH MCHC RDW Plt Count MPV Neut % (Auto) Lymph % (Auto) [place] % (Auto) Eos % (Auto) Baso % (Auto) Neut # (Auto) Lymph # (Auto) [place] # (Auto) Eos # (Auto) Baso # (Auto) WBC Differential Differential Comment Sodium Potassium Chloride Carbon Dioxide Anion Gap BUN Creatinine Estimated GFR POC Glucose Random Glucose Lactic Acid 0.6 Calcium Total Bilirubin AST ALT Alkaline Phosphatase Total Protein Albumin Lipase Urine Color Yellow Urine Clarity Slightly cloudy Urine pH 6.0 Ur Specific [place] 1.020 Urine Protein 30 H Urine Glucose (UA) 1000 or greater H Urine Ketones 15 H Urine Occult Blood Negative Urine Nitrate Negative Urine Bilirubin Negative Urine Urobilinogen 0.2 Ur Leukocyte Esterase Negative Urine RBC 0-3 Urine WBC 6-8 H Urine WBC Clumps Rare H Ur Squamous Epith Cells 0-5 Urine Bacteria Many H Urine Mucus Rare H Micro UA Comment Culture indicated Ur Microscopic Review Microscopic reviewed Urine Culture Comments Culture indicated - Imaging Impressions Chest X-Ray 03/08/18 15:46 CONCLUSION: No evidence of acute cardiopulmonary process. Abdomen/Pelvis CT 03/08/18 17:04 CONCLUSION: 1. CT findings suggest acute cholecystitis in the proper clinical setting. No abscess. No perceptible stone. No ductal dilatation. 2. Normal appendix. 3. Several unusual scattered areas of low density involving the inferior half of the left kidney, nonspecific. These may be atypical CT appearance of cysts or the sequela of previous infection. Neoplasm considered unlikely. Also would not be typical of acute infection but do please correlate clinically and with urinalysis. 4. Tiny effusions of both lung bases and a very small pericardial effusion. 5. Scattered benign and chronic appearing hypertrophic bone changes of the visualized thoracic spine. Gallbladder Ultrasound 03/08/18 18:51 CONCLUSION: 1. Echogenic enlarged liver most consistent with hepatic steatosis versus medical liver disease. 2. Focal 3.3 region of slightly decreased echogenicity in the caudate does not correspond to focal abnormality on CT exam. This likely reflects focal fatty sparing. Further evaluation may be performed with outpatient Eovist MRI examination if patient has a history of hepatitis or is at significantly increased risk for hepatocellular carcinoma. 3. Adherent 6 mm gallstone versus polyp in the gallbladder with diffuse gallbladder wall thickening. Findings are commonly seen in the setting of chronic liver disease but limit sonographic sensitivity for acute cholecystitis. HIDA scan apparently has been already noted. Caprini VTE Risk Assessment Caprini VTE Risk Assessment: No/Low Risk (score <= 1) Caprini Risk Assessment Model: Point Value = 1 Point Value = 2 Point Value = 3 Point Value = 5 Age 41-60 Minor surgery BMI > 25 kg/m2 Swollen legs Varicose veins or History of unexplained or recurrent spontaneous Oral contraceptives or hormone replacement Sepsis (< 1 month) Serious lung disease, including pneumonia (< 1 month) Abnormal pulmonary function Acute myocardial infarction Congestive heart failure (< 1 month) History of inflammatory bowel disease Medical patient at bed rest Age 61-74 Arthroscopic surgery Major open surgery (> 45 min) Laparoscopic surgery (> 45 min) Malignancy Confined to bed (> 72 hours) Immobilizing plaster cast Central venous access Age >= 75 History of VTE Family history of VTE Factor V Leiden Prothrombin [id number] Lupus anticoagulant Anticardiolipin antibodies Elevated serum homocysteine Heparin-induced thrombocytopenia Other congenital or acquired thrombophilia Stroke (< 1 month) Elective arthroplasty Hip, pelvis, or leg fracture Acute spinal cord injury (< 1 month) Prophylaxis Regimen: Total Risk Factor Score Risk Level Prophylaxis Regimen 0-1 Low Early ambulation 2 Moderate Order ONE of the following: *Sequential Compression Device (SCD) *Heparin 5000 units SQ BID 3-4 Higher Order ONE of the following medications: *Heparin 5000 units SQ TID *Enoxaparin/Lovenox 40 mg SQ daily (WT < 150 kg, CrCl > 30 mL/min) *Enoxaparin/Lovenox 30 mg SQ daily (WT < 150 kg, CrCl > 10-29 mL/min) *Enoxaparin/Lovenox 30 mg SQ BID (WT < 150 kg, CrCl > 30 mL/min) AND/OR *Sequential Compression Device (SCD) 5 or more Highest Order ONE of the following medications: *Heparin 5000 units SQ TID (Preferred with Epidurals) *Enoxaparin/Lovenox 40 mg SQ daily (WT < 150 kg, CrCl > 30 mL/min) *Enoxaparin/Lovenox 30 mg SQ daily (WT < 150 kg, CrCl > 10-29 mL/min) *Enoxaparin/Lovenox 30 mg SQ BID (WT < 150 kg, CrCl > 30 mL/min) AND *Sequential Compression Device (SCD) Assessment and Plan - Assessment (1) Sepsis Code(s): A41.9 - Sepsis, unspecified organism Status: Acute (2) Acute cholecystitis Code(s): K81.0 - Acute cholecystitis Status: Acute (3) Urinary tract infection Code(s): N39.0 - Urinary tract infection, site not specified Status: Acute (4) Hypokalemia Code(s): E87.6 - Hypokalemia Status: Acute (5) Hyperglycemia Code(s): R73.9 - Hyperglycemia, unspecified Status: Acute - Plan Sepsis -Patient meets criteria with fever, tachycardia, urinary tract infection, cholecystitis -Chest x-ray did not indicate any acute abnormality. -Influenza testing was negative -Patient was given Rocephin in the emergency department with continuation of Zosyn -Continue to follow blood cultures -Continue Tylenol for fever Acute cholecystitis -Liver enzymes do not indicate any obstructive process -CT scan and gallbladder ultrasound indicate acute cholecystitis -Continue antibiotics, IV fluids, pain control -General surgery consulted for further recommendations -General surgery has requested HIDA scan to be performed -Patient remain n.p.o. at this time Urinary tract infection, possible pyelonephritis -CT scan does indicate some abnormalities noted in the left kidney which could be sequela of infection -Patient continued on antibiotics -Continue to follow urine culture for appropriate antibiotics Hypokalemia -Continue monitor and replete as needed Diabetes -Accu-Cheks with sliding scale insulin DVT prevention -Sequential compression devices
[2018-03-09 07:38] LABS: Chloride 105 meq/L (98-107); Sodium 138 meq/L (136-145)
[2018-03-09 07:42] LABS: Albumin 2.7 g/dL (3.4-5.0); Anion Gap 12 meq/L (5-15); Calcium 8.2 mg/dL (8.5-10.1); Carbon Dioxide 21.3 meq/L (21.0-32.0); Glucose,Random 227 mg/dL (74-106)
[2018-03-09 07:43] LABS: Blood Urea Nitrogen 7 mg/dL (7-18)
[2018-03-09 07:45] LABS: Alanine Aminotransferase 70 U/L (10-53); Aspartate Aminotransferase 18 U/L (15-37)
[2018-03-09 07:46] LABS: Glomerular Filtration Rate Greater Than 89 mL/min (>89)
[2018-03-09 07:47] LABS: Total Protein 6.4 g/dL (6.4-8.2)
[2018-03-09 07:48] LABS: Alkaline Phosphatase 182 U/L (45-117)
[2018-03-09] MEDS: Potassium Chlor 20 mEq Premix 20 MEQ/100 ML PIGGYBACK IV.SIG SCH ×2 (10:56→14:57)
[2018-03-09] MEDS: Senna/Docusate Sodium 8.6/50 MG Tablet PO SCH ×2 (10:57→20:11)
[2018-03-09] MEDS ORDERED: Sincalide Inj 5 MCG Vial IV.PUSH ONE (12:20)
--- NOTE | 2018-03-09 13:33 | NM ---
EXAM DATE: 03/09/2018 1:18 PM EST AGE/SEX: 52 years / Female INDICATIONS: Abdominal pain. CLINICAL DATA: This is the patient's initial encounter. Patient reports that signs and symptoms have been present for 1 day and indicates a pain score of 1/10. MEDICAL/SURGICAL HISTORY: Diabetes mellitus type II. None. COMPARISON: [facility], US ABDOMEN - GALLBLADDER, 03/08/2018. . DOSE: 4.1 mCi Tc-99m mebrofenin i.v. Medication: 1 mcg Cholecystokinin IV No symptomatic response Cholecystokinin was administered by slow infusion over 8 minutes beginning at 60 minutes. minutes. TECHNIQUE: Following the intravenous administration of radiotracer, dynamic sequential images were pe rformed with continuous acquisition. Time-activity curves were generated. FINDINGS: Hepatic Kinetics: There is prompt uptake of radiotracer in the liver. No focal defects are seen. Ther e is normal rate of washout from the hepatic parenchyma. Biliary Clearance: Activity is first seen in the extrahepatic biliary system at 10 minutes. There is normal excretion into the small bowel. Gallbladder: Activity is first seen in the gallbladder at 20 minutes. Post-CCK: After CCK administration, there is emptying of the gallbladder with a 0% ejection fraction. Common bile duct kinetics are normal and there is no evidence of biliary obstruction. No symptomati c response after cholecystokinin infusion. Biliary-Enteric Reflux: None observed. CONCLUSION: 1. Gallbladder is visualized confirming patency of the cystic duct. This makes the possibility of ac elvira cholecystitis highly unlikely. 2. No symptomatic response to CCK administration. However, there is no significant gallbladder empty ing following CCK administration. Electronically signed by: Esequiel Hawkins MD 03/09/2018 1:32 PM EST
[2018-03-09] MEDS ORDERED: Dextrose 50% in Water 50 ML Vial IV.PUSH PRN (14:20)
--- NOTE | 2018-03-09 15:46 | P.CON ---
History of Present Illness Consult date: 03/09/18 Reason for Consult: Question of acute cholecystitis, right upper quadrant pain Primary Care Provider: No Primary Care Physician Chief Complaint: Fever, leg pains, elevated glucose History of Present Illness: Patient is a 52-year-old female with a known history of diabetes who presented due to hyperglycemia intermittent fever and abdominal pain. The patient's significant other indicates that she takes Advil up to 6 times a day to control lower extremity pain which is likely neuropathy. She underwent CT scan which demonstrated a 7 mm gallbladder wall with a 6 mm gallbladder polyp versus sludge. Patient has essentially normal liver function tests with elevated alkaline phosphatase. Gallbladder ultrasound demonstrated no stones and a negative Diaz sign. HIDA scan was just completed and this demonstrates no evidence of acute cholecystitis with visualization of the gallbladder. [facility] - History History Provided By: Patient - Medical History Medical History: Medical History (Last Updated 03/08/18 @ 15:15 by Lin Blanca RN) Back pain Diabetes Nerve pain - Surgical History Surgical History: Surgical History (Last Updated 03/09/18 @ 07:31 by PATRICIA Bowen) Ectopic - Family History Family History: Family History (Last Updated 03/09/18 @ 07:31 by PATRICIA Bowen) Father Family history of hypertension - Tobacco History Second Hand Smoke Exposure: No Tobacco Use In Past 30 Days: No Smoking Status: Never smoker - Alcohol History How Often Do You Have a Drink Containing Alcohol: Never - Substance Use History Substance History: No History of Abuse - Travel History Recent Travel in the [place] Within the Last 8 Weeks: No Recent Travel Out of the Country Within the Last 8 Weeks: No - Immunization History Tetanus Immunization: Unsure Medications and Allergies Active Medications: Active Medications Acetaminophen (Tylenol) 500 mg PO Q6H PRN PRN Reason: HEADACHE OR TEMP > 101 F Al Hydroxide/Mg Hydroxide (Milk Of Magnesia Liq) 30 ml PO Q12H PRN PRN Reason: Mild Constipation Bisacodyl (Dulcolax Supp) 10 mg RECTAL DAILY PRN PRN Reason: SEVERE CONSITIPATION Dextrose (D50w Vial) 50 ml IV.PUSH UNSCH PRN PRN Reason: PER HYPOGLYCEMIA PROTOCOL Glucagon (Glucagon Inj) 1 mg OTHER PRN PRN PRN Reason: for Hypoglycemia Protocol Piperacillin/Tazobactam/Dextrose (Zosyn 3.375 Gm Premix) 50 mls @ 100 mls/hr IV.SIG Q6H [facility] Last Admin: 03/09/18 14:57 Dose: 100 mls/hr Potassium Chloride/Sodium Chloride (Ns + Kcl 20 Meq Inj) 1,000 mls @ 100 mls/ hr IV.CONT .Q10H [facility] Last Admin: 03/09/18 10:55 Dose: 100 mls/hr Insulin Aspart (Novolog Insulin Correctional Sugar Inj) 0 unit SQ ACHS [facility]; Protocol Lactulose (Lactulose Liq) 30 ml PO DAILY PRN PRN Reason: SEVERE CONSITIPATION Morphine Sulfate (Morphine Inj) 2 mg IV.PUSH Q4H PRN PRN Reason: pain 6-10 Last Admin: 03/09/18 05:06 Dose: 2 mg Ondansetron HCl (Zofran Inj) 4 mg IV.PUSH Q6H PRN PRN Reason: NAUSEA OR VOMITING Last Admin: 03/09/18 05:05 Dose: 4 mg Senna/Docusate Sodium (Mariam-Colace) 1 tab PO BID [facility] Last Admin: 03/09/18 10:57 Dose: Not Given Sennosides (Senokot) 17.2 mg PO Q12H PRN PRN Reason: Moderate Constipation Allergies Allergy/AdvReac Type Severity Reaction Status Date / Time No Known Allergies Allergy Verified 03/08/18 14:19 Home Medications Medication Instructions Recorded Confirmed Type No Known Home Medications 03/08/18 03/08/18 History Physical Exam Vital signs: Vital Signs 03/08/18 15:44 03/08/18 17:06 03/08/18 18:12 Temperature 99.9 F H 99 F 102.9 F H Pulse Rate 84 93 H 106 H Respiratory Rate 16 18 16 Blood Pressure 152/87 H 154/73 H 149/73 H Pulse Oximetry 96 99 94 L 03/08/18 19:37 03/08/18 21:10 03/09/18 00:00 Temperature 100.9 F H 99.1 F 100.6 F H Pulse Rate 90 75 92 H Respiratory Rate 16 16 16 Blood Pressure 132/64 114/61 132/68 Pulse Oximetry 95 95 97 03/09/18 08:00 Temperature 98.8 F Pulse Rate 72 Respiratory Rate 18 Blood Pressure 107/56 L Pulse Oximetry 95 Intake & Output 03/08/18 03/09/18 03/09/18 18:59 06:59 18:59 Intake Total 1000 / 1000 200 / 200 100 / 100 Balance 1000 / 1000 200 / 200 100 / 100 Weight 51 kg 50.7 kg Intake: IV 1000 / 1000 200 / 200 100 / 100 Zosyn 3.375 GM Premix 50 ML @ 100 / 100 100 mls/hr IV.SIG Q6H [facility] Rx#: [id number] KCl 20 mEq Premix Inj 20 meq In 100 / 100 100 ml @ 50 mls/hr IV.SIG Q2H [facility] Rx#:[id number] NS Inj 1,000 ML @ Wide Open IV. 1000 / 1000 SIG BOLUS ONE Rx#:[id number] Rocephin Inj 1,000 MG In NS Inj 100 / 100 100 ML @ 200 mls/hr IV.SIG ONCE ONE Rx#:[id number] Other: # Voids 2 Weight On Admission 50.023 kg - Constitutional mild distress - Routine Respiratory Exam Present: CTA bilaterally - Routine Cardiovascular Exam Present: RRR - Routine Abdominal Exam Present: soft, tenderness (Very minimal epigastric tenderness without guarding. No CVA tenderness) - Routine Skin Exam Present: intact - Routine Neurological Exam Present: alert - Detailed Neurological Exam: Coma Scale Eye Opening: Spontaneous Verbal Response: Oriented Motor Response: Obey commands Shefali Coma Scale Total: 15 Results - Labs CBC & Chem 7: 03/09/18 06:32 03/09/18 06:32 Labs: Laboratory Results - last 24 hr 03/08/18 03/08/18 03/08/18 15:50 15:50 15:50 CBC w Diff Auto diff final WBC 11.3 H RBC 4.08 Hgb 11.8 Hct 34.9 L MCV 85.4 MCH 28.8 MCHC 33.7 RDW 12.2 Plt Count 327 MPV 7.7 Neut % (Auto) 73.2 H Lymph % (Auto) 16.7 [place] % (Auto) 8.9 H Eos % (Auto) 0.9 Baso % (Auto) 0.3 Neut # (Auto) 8.3 H Lymph # (Auto) 1.9 [place] # (Auto) 1.0 H Eos # (Auto) 0.1 Baso # (Auto) 0.0 WBC Differential . Differential Comment . Sodium 138 Potassium 3.1 L Chloride 105 Carbon Dioxide 23.4 Anion Gap 10 BUN 10 Creatinine 0.56 Estimated GFR Greater than 89 Random Glucose 239 H Lactic Acid 0.6 Calcium 8.8 Total Bilirubin 0.3 AST 30 ALT 91 H Alkaline Phosphatase 209 H Total Protein 6.9 Albumin 3.0 L Lipase 75 Urine Color Urine Clarity Urine pH Ur Specific [place] Urine Protein Urine Glucose (UA) Urine Ketones Urine Occult Blood Urine Nitrate Urine Bilirubin Urine Urobilinogen Ur Leukocyte Esterase Urine RBC Urine WBC Urine WBC Clumps Ur Squamous Epith Cells Urine Bacteria Urine Mucus Micro UA Comment Ur Microscopic Review Urine Culture Comments 03/08/18 03/09/18 03/09/18 15:50 06:32 06:32 CBC w Diff Auto diff final WBC 13.7 H RBC 3.65 L Hgb 10.9 L Hct 31.7 L MCV 86.9 MCH 30.0 MCHC 34.5 RDW 12.4 Plt Count 326 MPV 8.3 Neut % (Auto) 76.3 H Lymph % (Auto) 15.4 [place] % (Auto) 7.5 Eos % (Auto) 0.3 Baso % (Auto) 0.5 Neut # (Auto) 10.5 H Lymph # (Auto) 2.1 [place] # (Auto) 1.0 H Eos # (Auto) 0.0 Baso # (Auto) 0.1 WBC Differential . Differential Comment . Sodium 138 Potassium 3.0 L Chloride 105 Carbon Dioxide 21.3 Anion Gap 12 BUN 7 Creatinine 0.58 Estimated GFR Greater than 89 Random Glucose 227 H Lactic Acid Calcium 8.2 L Total Bilirubin 0.5 AST 18 ALT 70 H Alkaline Phosphatase 182 H Total Protein 6.4 Albumin 2.7 L Lipase Urine Color Yellow Urine Clarity Slightly cloudy Urine pH 6.0 Ur Specific [place] 1.020 Urine Protein 30 H Urine Glucose (UA) 1000 or greater H Urine Ketones 15 H Urine Occult Blood Negative Urine Nitrate Negative Urine Bilirubin Negative Urine Urobilinogen 0.2 Ur Leukocyte Esterase Negative Urine RBC 0-3 Urine WBC 6-8 H Urine WBC Clumps Rare H Ur Squamous Epith Cells 0-5 Urine Bacteria Many H Urine Mucus Rare H Micro UA Comment Culture indicated Ur Microscopic Review Microscopic reviewed Urine Culture Comments Culture indicated - Imaging Impressions Chest X-Ray 03/08/18 15:46 CONCLUSION: No evidence of acute cardiopulmonary process. Abdomen/Pelvis CT 03/08/18 17:04 CONCLUSION: 1. CT findings suggest acute cholecystitis in the proper clinical setting. No abscess. No perceptible stone. No ductal dilatation. 2. Normal appendix. 3. Several unusual scattered areas of low density involving the inferior half of the left kidney, nonspecific. These may be atypical CT appearance of cysts or the sequela of previous infection. Neoplasm considered unlikely. Also would not be typical of acute infection but do please correlate clinically and with urinalysis. 4. Tiny effusions of both lung bases and a very small pericardial effusion. 5. Scattered benign and chronic appearing hypertrophic bone changes of the visualized thoracic spine. Gallbladder Ultrasound 03/08/18 18:51 CONCLUSION: 1. Echogenic enlarged liver most consistent with hepatic steatosis versus medical liver disease. 2. Focal 3.3 region of slightly decreased echogenicity in the caudate does not correspond to focal abnormality on CT exam. This likely reflects focal fatty sparing. Further evaluation may be performed with outpatient Eovist MRI examination if patient has a history of hepatitis or is at significantly increased risk for hepatocellular carcinoma. 3. Adherent 6 mm gallstone versus polyp in the gallbladder with diffuse gallbladder wall thickening. Findings are commonly seen in the setting of chronic liver disease but limit sonographic sensitivity for acute cholecystitis. HIDA scan apparently has been already noted. Bile Acid Absorption NM 03/09/18 00:00 CONCLUSION: 1. Gallbladder is visualized confirming patency of the cystic duct. This makes the possibility of acute cholecystitis highly unlikely. 2. No symptomatic response to CCK administration. However, there is no significant gallbladder emptying following CCK administration. Assessment and Plan - Assessment (1) Abdominal pain Code(s): R10.9 - Unspecified abdominal pain Status: Acute Plan: Workup does not indicate acute cholecystitis at this time. She is likely having physical symptoms possibly secondary to nonsteroidal anti-inflammatory use and duodenitis/gastritis or duodenal ulcer. Would recommend GI consultation for consideration for EGD. No surgical intervention is required. Would be okay to let patient have clear liquids until GI service sees patient. Thank you for this interesting consult. - Plan Discussed Condition With: Patient PATRICIA Coronado - Attending Attestation I attest that I had a [id number] encounter with the patient on the same day, and personally performed and documented my assessment and findings in the medical record. The following services were provided during this hospital visit: Chart data review, vital sign assessments/reviewing monitor data Review of consultation notes if present Medication orders/review and/or management Ordering and/or reviewing lab tests Ordering and/or interpreting/reviewing x-rays and/or diagnostic studies Care of the patient and discussion of the patient with the care team Documentation time To help prompt me to consider important information that might be impacting today's encounter and assessment, Information from prior notes written by myself or my colleagues may have been "brought forward/copy and pasted" into today's note.
[2018-03-09] MEDS: Acetaminophen 500 MG Tablet PO PRN (17:04)
[2018-03-09] MEDS: Insulin NovoLOG Aspart Correctional Sugar Inj SQ SCH ×2 (17:05→20:31)
[2018-03-10] MEDS: Piperacil/Tazo 3.375 GM Premix 50 ML IV.SIG SCH ×4 (02:15→20:18)
[2018-03-10] MEDS: Acetaminophen 500 MG Tablet PO PRN ×2 (03:13→11:12)
[2018-03-10 07:01] LABS: Baso % (Auto) 0.3 % (0.0-2.0); Eos # (Auto) 0.1 th/mm3 (0.0-0.4); Eos % (Auto) 0.8 % (0.0-4.0); Hematocrit 32.2 % (35.0-46.0); Hemoglobin 10.4 gm/dL (11.6-15.3); Lymph # (Auto) 2.6 th/mm3 (1.0-4.8); Lymph % (Auto) 20.4 % (9.0-44.0); Mean Corpuscular HGB Conc 32.1 % (32.0-36.0); Mean Corpuscular Volume 87.2 fL (80.0-100.0); Mean Platelet Volume 7.4 fL (7.0-11.0); Mono # (Auto) 0.8 th/mm3 (0.0-0.9); Mono % (Auto) 6.4 % (0.0-8.0); Neut % (Auto) 72.1 % (16.0-70.0); Platelet Count 375 th/mm3 (150-450); Red Cell Distribution Width 12.4 % (11.6-17.2); White Blood Count 12.5 th/mm3 (4.0-11.0)
[2018-03-10 07:11] LABS: Chloride 109 meq/L (98-107); Potassium 3.7 meq/L (3.5-5.1); Sodium 141 meq/L (136-145)
[2018-03-10 07:15] LABS: Anion Gap 10 meq/L (5-15); Carbon Dioxide 22.3 meq/L (21.0-32.0); Glucose,Random 199 mg/dL (74-106); Magnesium 1.9 mg/dL (1.5-2.5)
[2018-03-10 07:16] LABS: Blood Urea Nitrogen 8 mg/dL (7-18)
[2018-03-10 07:19] LABS: Glomerular Filtration Rate Greater Than 89 mL/min (>89)
--- NOTE | 2018-03-10 07:55 | P.PNIM ---
Subjective Interval history: 52-year-old female who was seen and examined today for follow-up on sepsis. Patient states that she is feeling much better. She wants to go home. Discussed with her that she has bacteremia, urinary tract infection that we will need to keep her in the hospital another 24-48 hours depending on results of cultures. Patient does understand. Vital signs appear to be stable. Patient not had a fever since 4:00 yesterday afternoon. Physical Exam Vital signs: Vital Signs 03/09/18 08:00 03/09/18 16:00 03/09/18 20:00 Temperature 98.8 F 102.2 F H 98.3 F Pulse Rate 72 93 H 69 Respiratory Rate 18 18 20 Blood Pressure 107/56 L 144/69 H 106/59 L Pulse Oximetry 95 95 95 03/10/18 00:00 03/10/18 04:00 Temperature 98.2 F Pulse Rate 68 Respiratory Rate 20 18 Blood Pressure 92/59 L Pulse Oximetry 96 Intake & Output 03/09/18 03/10/18 03/10/18 18:59 06:59 18:59 Intake Total 370 / 370 3340 / 3340 Balance 370 / 370 3340 / 3340 Intake: IV 250 / 250 3100 / 3100 NS + KCl 20 mEq Inj 1,000 ML @ 2000 / 2000 100 mls/hr IV.CONT .Q10H [facility] Rx #:[id number] Zosyn 3.375 GM Premix 50 ML @ 50 / 50 100 / 100 100 mls/hr IV.SIG Q6H [facility] Rx#: [id number] KCl 20 mEq Premix Inj 20 meq In 200 / 200 100 ml @ 50 mls/hr IV.SIG Q2H [facility] Rx#:[id number] Oral 120 / 120 240 / 240 Other: # Voids 3 Narrative: GENERAL: Well-developed, well-nourished, in no acute distress. alert and orientated HEENT: Head is normocephalic without any lesions or masses noted. Facial features are symmetric. Eyes: Extraocular muscles are intact. Conjunctivae were clear. NECK: Supple without any masses. Trachea midline no deviation. No JVD, CARDIAC: Regular rhythm, regular rate. S1/S2 are heard. No murmurs gallops or rubs. LUNGS: Clear to auscultation bilaterally. No wheeze, rhonchi or rales. No use of accessory muscles on inspiration or expiration. ABDOMEN: Soft, nontender. Nondistended. Bowel sounds heard in all 4 quadrants. No organomegaly or masses. Negative rebound, negative guarding EXTREMITIES: No edema, pulses are equal bilaterally. No cyanosis or clubbing NEUROLOGY: Mood and affect appear appropriate. Cranial nerves II through XII grossly intact. Moving all extremities, speech is clear Results - Labs CBC & Chem 7: 03/10/18 06:07 03/10/18 06:07 Laboratory Results - last 24 hr 03/08/18 03/09/18 03/09/18 15:50 16:32 20:25 CBC w Diff WBC RBC Hgb Hct MCV MCH MCHC RDW Plt Count MPV Neut % (Auto) Lymph % (Auto) [place] % (Auto) Eos % (Auto) Baso % (Auto) Neut # (Auto) Lymph # (Auto) [place] # (Auto) Eos # (Auto) Baso # (Auto) WBC Differential Differential Comment Sodium Potassium Chloride Carbon Dioxide Anion Gap BUN Creatinine Estimated GFR POC Glucose 224 H 227 H Random Glucose Calcium Magnesium Urine Color Yellow Urine Clarity Slightly cloudy Urine pH 6.0 Ur Specific [place] 1.020 Urine Protein 30 H Urine Glucose (UA) 1000 or greater H Urine Ketones 15 H Urine Occult Blood Negative Urine Nitrate Negative Urine Bilirubin Negative Urine Urobilinogen 0.2 Ur Leukocyte Esterase Negative Urine RBC 0-3 Urine WBC 6-8 H Urine WBC Clumps Rare H Ur Squamous Epith Cells 0-5 Urine Bacteria Many H Urine Mucus Rare H Micro UA Comment Culture indicated Ur Microscopic Review Microscopic reviewed Urine Culture Comments Culture indicated 03/10/18 03/10/18 06:07 06:07 CBC w Diff Auto diff final WBC 12.5 H RBC 3.70 L Hgb 10.4 L Hct 32.2 L MCV 87.2 MCH 28.0 MCHC 32.1 RDW 12.4 Plt Count 375 MPV 7.4 Neut % (Auto) 72.1 H Lymph % (Auto) 20.4 [place] % (Auto) 6.4 Eos % (Auto) 0.8 Baso % (Auto) 0.3 Neut # (Auto) 9.0 H Lymph # (Auto) 2.6 [place] # (Auto) 0.8 Eos # (Auto) 0.1 Baso # (Auto) 0.0 WBC Differential . Differential Comment . Sodium 141 Potassium 3.7 Chloride 109 H Carbon Dioxide 22.3 Anion Gap 10 BUN 8 Creatinine 0.55 Estimated GFR Greater than 89 POC Glucose Random Glucose 199 H Calcium 8.0 L Magnesium 1.9 Urine Color Urine Clarity Urine pH Ur Specific [place] Urine Protein Urine Glucose (UA) Urine Ketones Urine Occult Blood Urine Nitrate Urine Bilirubin Urine Urobilinogen Ur Leukocyte Esterase Urine RBC Urine WBC Urine WBC Clumps Ur Squamous Epith Cells Urine Bacteria Urine Mucus Micro UA Comment Ur Microscopic Review Urine Culture Comments Microbiology 03/08/18 15:50 Clean Catch Urine Urine Culture - Preliminary gram negative rods 03/08/18 18:40 Blood - Peripheral Aerobic Blood Culture - Preliminary No growth in 1 day 03/08/18 18:40 Blood - Peripheral Anaerobic Blood Culture - Preliminary gram negative rods 03/08/18 18:35 Blood - Peripheral Aerobic Blood Culture - Preliminary No growth in 1 day 03/08/18 18:35 Blood - Peripheral Anaerobic Blood Culture - Preliminary No growth in 1 day - Imaging Impressions Bile Acid Absorption NM 03/09/18 00:00 CONCLUSION: 1. Gallbladder is visualized confirming patency of the cystic duct. This makes the possibility of acute cholecystitis highly unlikely. 2. No symptomatic response to CCK administration. However, there is no significant gallbladder emptying following CCK administration. Assessment and Plan - Assessment (1) Sepsis Code(s): A41.9 - Sepsis, unspecified organism Status: Acute (2) Acute cholecystitis Code(s): K81.0 - Acute cholecystitis Status: Acute (3) Urinary tract infection Code(s): N39.0 - Urinary tract infection, site not specified Status: Acute (4) Hypokalemia Code(s): E87.6 - Hypokalemia Status: Acute (5) Hyperglycemia Code(s): R73.9 - Hyperglycemia, unspecified Status: Acute - Plan Sepsis, persistent -Patient meets criteria with fever, leukocytosis, tachycardia, urinary tract infection -Chest x-ray did not indicate any acute abnormality. -Influenza testing was negative -Continue Zosyn -Blood cultures now positive for gram-negative marce 1/4 bottles -Continue Tylenol for fever Positive blood cultures -Positive blood cultures with 1/4 bottles with gram-negative marce -Suspect from urinary tract infection -Continue to monitor cultures -Follow-up cultures were performed, awaiting negative result for 2 days prior to discharge Urinary tract infection, likely pyelonephritis -CT scan does indicate some abnormalities noted in the left kidney which could be sequela of infection, however patient has negative CVA tenderness -Patient continued on antibiotics -Continue to follow urine culture for appropriate antibiotics Hypokalemia -Continue monitor and replete as needed Acute cholecystitis, ruled out -Liver enzymes do not indicate any obstructive process -CT scan and gallbladder ultrasound indicate acute cholecystitis -HIDA scan was performed that did not indicate any gallbladder abnormality -General surgery consulted for further recommendations, they evaluated the patient and sign off at this Diabetes -Accu-Cheks with sliding scale insulin DVT prevention -Sequential compression devices
[2018-03-10] MEDS: Insulin NovoLOG Aspart Correctional Sugar Inj SQ SCH ×4 (08:28→20:28)
[2018-03-10] MEDS: Senna/Docusate Sodium 8.6/50 MG Tablet PO SCH ×2 (10:58→20:20)
[2018-03-10] MEDS: Morphine Sulfate Inj 2 MG/ML Vial IV.PUSH PRN ×2 (16:39→20:17)
[2018-03-10 20:30] VITALS: RESP 18
[2018-03-11] MEDS: Morphine Inj 4 MG/ML Vial IV.PUSH PRN ×3 (00:10→08:53)
[2018-03-11] MEDS: Acetaminophen 500 MG Tablet PO PRN ×2 (00:10→11:55)
[2018-03-11] MEDS: Piperacil/Tazo 3.375 GM Premix 50 ML IV.SIG SCH ×2 (02:20→08:46)
[2018-03-11 05:44] LABS: Baso % (Auto) 0.3 % (0.0-2.0); Eos # (Auto) 0.2 th/mm3 (0.0-0.4); Eos % (Auto) 1.6 % (0.0-4.0); Hemoglobin 10.1 gm/dL (11.6-15.3); Lymph # (Auto) 2.8 th/mm3 (1.0-4.8); Lymph % (Auto) 26.7 % (9.0-44.0); Mean Corpuscular HGB Conc 33.5 % (32.0-36.0); Mean Corpuscular Hemoglobin 28.8 pg (27.0-34.0); Mono # (Auto) 0.6 th/mm3 (0.0-0.9); Mono % (Auto) 5.4 % (0.0-8.0); Neut # (Auto) 6.7 th/mm3 (1.8-7.7); Platelet Count 402 th/mm3 (150-450); Red Blood Count 3.49 mil/mm3 (4.00-5.30); Red Cell Distribution Width 12.4 % (11.6-17.2); White Blood Count 10.3 th/mm3 (4.0-11.0)
[2018-03-11 05:53] LABS: Chloride 108 meq/L (98-107); Potassium 3.7 meq/L (3.5-5.1); Sodium 140 meq/L (136-145)
[2018-03-11 05:56] LABS: Calcium 8.1 mg/dL (8.5-10.1)
[2018-03-11 05:57] LABS: Anion Gap 8 meq/L (5-15); Blood Urea Nitrogen 6 mg/dL (7-18); Carbon Dioxide 24.3 meq/L (21.0-32.0); Glucose,Random 189 mg/dL (74-106)
[2018-03-11 06:00] LABS: Glomerular Filtration Rate Greater Than 89 mL/min (>89)
[2018-03-11] MEDS: Senna/Docusate Sodium 8.6/50 MG Tablet PO SCH (08:44)
[2018-03-11 08:45] VITALS: O2SAT 95
[2018-03-11] MEDS: Insulin NovoLOG Aspart Correctional Sugar Inj SQ SCH ×2 (08:45→11:54)
--- NOTE | 2018-03-11 11:24 | P.DS ---
Date of admission: 03/10/18 07:48 Primary care physician: No Primary Care Physician Attending physician on discharge: Willian Wilks Anticipated date of discharge: 03/11/18 Brief History from admission: 52-year-old female with known history of diabetes who presented to the hospital because of intermittent fever, abdominal pain. Information was taken from patient and significant other at bedside. Indicated that she has been experiencing intermittent fevers for the last month with lower extremity pain. I have been monitoring her blood glucose and then noticed it was 280 yesterday and they contacted a friend who is a nurse in they are concerned that it has been running elevated lately so they brought her to the hospital for evaluation. On presentation the patient was febrile. She had workup done in emergency department and found to have sepsis by criteria. Further workup did indicate acute cholecystitis, urinary tract infection. Patient indicates that she has been having right-sided and suprapubic abdominal pain. Patient appears very lethargic and warm to the touch this morning. Patient was admitted with empirical antibiotics and general surgery consult. Patient denies any nausea, vomiting, diarrhea, constipation, melena, hematochezia. DS: Diagnosis - Discharge Diagnosis (1) Sepsis Status: Acute (2) Acute cholecystitis Status: Acute (3) Urinary tract infection Status: Acute (4) Hypokalemia Status: Acute (5) Hyperglycemia Status: Acute DS: Medications - Discharge Medications Prescriptions: ciprofloxacin HCl [Cipro] 500 mg PO BID #14 tab DS: Summary Hospital Course: 52-year-old [place] female who originally presented to hospital because of abdominal pain, fever, chills. Patient had workup done in emergency department found to have urinary tract infection, possible pyelonephritis, cholecystitis by ultrasound and CT. Patient was admitted the hospital with empirical antibiotics to include Zosyn, general surgery consult. General surgery did recommend the patient undergo HIDA scan which was unremarkable and does not indicate any gallbladder issues. General surgery signed off. Patient did meet criteria for sepsis with fever, leukocytosis, urinary tract infection. CT scan did indicate some findings that could be indicative or sequela of infection in the left kidney. Patient had blood cultures taken which did show positive blood culture 1/4 with pansensitive E. coli. Urine culture was continued until completed which also showed pansensitive E. coli. Patient with urosepsis and did respond to treatment quite well. Follow-up cultures were performed and blood cultures remain negative for 2 days. Patient has remained afebrile and over 48 hours. Patient clinically stable at this time. Plan discharge home in stable condition. - Time Spent with Patient Total time spent providing and/or coordinating discharge services: Greater than 30 minutes - Quality: VTE Deep Vein Thrombosis/Pulmonary Embolism Present on Admission: No Exam Vital signs: Vital Signs 03/10/18 12:00 03/10/18 16:00 03/10/18 20:00 Temperature 98.6 F 98.3 F 97.1 F L Pulse Rate 71 66 87 Respiratory Rate 22 19 18 Blood Pressure 130/72 146/73 H 180/86 H Pulse Oximetry 96 97 98 03/10/18 20:29 03/11/18 00:00 03/11/18 00:49 Temperature 100.0 F H Pulse Rate 87 Respiratory Rate 18 18 18 Blood Pressure 144/70 H Pulse Oximetry 98 03/11/18 04:00 03/11/18 05:25 03/11/18 08:00 Temperature 97.8 F 97.8 F Pulse Rate 65 69 Respiratory Rate 18 18 18 Blood Pressure 126/76 117/59 L Pulse Oximetry 95 Intake & Output 03/10/18 03/11/18 03/11/18 18:59 06:59 18:59 Intake Total 1340 / 1340 1340 / 1340 50 / 50 Output Total 300 / 300 Balance 1340 / 1340 1040 / 1040 50 / 50 Weight 53.9 kg Intake: IV 1100 / 1100 1100 / 1100 50 / 50 NS + KCl 20 mEq Inj 1,000 ML @ 1000 / 1000 1000 / 1000 100 mls/hr IV.CONT .Q10H RAJIV Rx #:[id number] Zosyn 3.375 GM Premix 50 ML @ 100 / 100 100 / 100 50 / 50 100 mls/hr IV.SIG Q6H RAJIV Rx#: [id number] Oral 240 / 240 240 / 240 Output: Urine 300 / 300 Other: # Voids 4 Date of Last Bowel Movement 03/10/18 03/11/18 # Bowel Movements 1 Narrative: GENERAL: Well-developed, well-nourished, in no acute distress. alert and orientated HEENT: Head is normocephalic without any lesions or masses noted. Facial features are symmetric. Eyes: Extraocular muscles are intact. Conjunctivae were clear. NECK: Supple without any masses. Trachea midline no deviation. No JVD, CARDIAC: Regular rhythm, regular rate. S1/S2 are heard. No murmurs gallops or rubs. LUNGS: Clear to auscultation bilaterally. No wheeze, rhonchi or rales. No use of accessory muscles on inspiration or expiration. ABDOMEN: Soft, nontender. Nondistended. Bowel sounds heard in all 4 quadrants. No organomegaly or masses. Negative rebound, negative guarding EXTREMITIES: No edema, pulses are equal bilaterally. No cyanosis or clubbing NEUROLOGY: Mood and affect appear appropriate. Cranial nerves II through XII grossly intact. Moving all extremities, speech is clear Results Procedures completed during hospitalization: none Labs on day of discharge: Labs from last 24 hours 03/11/18 03/11/18 03/11/18 07:19 05:25 05:25 CBC w Diff Auto diff final WBC 10.3 RBC 3.49 L Hgb 10.1 L Hct 30.0 L MCV 86.0 MCH 28.8 MCHC 33.5 RDW 12.4 Plt Count 402 MPV 7.0 Neut % (Auto) 66.0 Lymph % (Auto) 26.7 [place] % (Auto) 5.4 Eos % (Auto) 1.6 Baso % (Auto) 0.3 Neut # (Auto) 6.7 Lymph # (Auto) 2.8 [place] # (Auto) 0.6 Eos # (Auto) 0.2 Baso # (Auto) 0.0 WBC Differential . Differential Comment . Sodium 140 Potassium 3.7 Chloride 108 H Carbon Dioxide 24.3 Anion Gap 8 BUN 6 L Creatinine 0.43 L Estimated GFR Greater than 89 POC Glucose 195 H Random Glucose 189 H Calcium 8.1 L 03/10/18 03/10/18 03/10/18 20:22 16:29 11:15 CBC w Diff WBC RBC Hgb Hct MCV MCH MCHC RDW Plt Count MPV Neut % (Auto) Lymph % (Auto) [place] % (Auto) Eos % (Auto) Baso % (Auto) Neut # (Auto) Lymph # (Auto) [place] # (Auto) Eos # (Auto) Baso # (Auto) WBC Differential Differential Comment Sodium Potassium Chloride Carbon Dioxide Anion Gap BUN Creatinine Estimated GFR POC Glucose 234 H 242 H 275 H Random Glucose Calcium Preliminary micro results at discharge 03/09/18 19:30 Aerobic Blood Culture - Preliminary Blood - Peripheral No growth in 2 days Anaerobic Blood Culture - Preliminary No growth in 2 days 03/08/18 18:40 Aerobic Blood Culture - Preliminary Blood - Peripheral No growth in 3 days Anaerobic Blood Culture - Preliminary gram negative rods 03/08/18 18:35 Aerobic Blood Culture - Preliminary Blood - Peripheral No growth in 3 days Anaerobic Blood Culture - Preliminary No growth in 3 days - Impressions ITS Impressions Chest X-Ray 03/08/18 15:46 CONCLUSION: No evidence of acute cardiopulmonary process. Abdomen/Pelvis CT 03/08/18 17:04 CONCLUSION: 1. CT findings suggest acute cholecystitis in the proper clinical setting. No abscess. No perceptible stone. No ductal dilatation. 2. Normal appendix. 3. Several unusual scattered areas of low density involving the inferior half of the left kidney, nonspecific. These may be atypical CT appearance of cysts or the sequela of previous infection. Neoplasm considered unlikely. Also would not be typical of acute infection but do please correlate clinically and with urinalysis. 4. Tiny effusions of both lung bases and a very small pericardial effusion. 5. Scattered benign and chronic appearing hypertrophic bone changes of the visualized thoracic spine. Gallbladder Ultrasound 03/08/18 18:51 CONCLUSION: 1. Echogenic enlarged liver most consistent with hepatic steatosis versus medical liver disease. 2. Focal 3.3 region of slightly decreased echogenicity in the caudate does not correspond to focal abnormality on CT exam. This likely reflects focal fatty sparing. Further evaluation may be performed with outpatient Eovist MRI examination if patient has a history of hepatitis or is at significantly increased risk for hepatocellular carcinoma. 3. Adherent 6 mm gallstone versus polyp in the gallbladder with diffuse gallbladder wall thickening. Findings are commonly seen in the setting of chronic liver disease but limit sonographic sensitivity for acute cholecystitis. HIDA scan apparently has been already noted. Bile Acid Absorption NM 03/09/18 00:00 CONCLUSION: 1. Gallbladder is visualized confirming patency of the cystic duct. This makes the possibility of acute cholecystitis highly unlikely. 2. No symptomatic response to CCK administration. However, there is no significant gallbladder emptying following CCK administration. Discharge Plan - Discharge Disposition Patient Disposition: 01 Discharge Home - Discharge Condition Condition: Stable - Discharge Order Discharge Orders: Discharge Order (Routine); Ordered 03/11/18 Ordered By: Vlad Longoria - Discharge Details Anticipated Discharge Date: 03/11/18 - Physicians Team Primary Care Provider: Primary Care Monserrat Leavitt Attending Provider: Willian Wilks Other Providers: Christo Mckeon MD
[2018-03-11 11:31] VITALS: BP 136/65; PULSE 77; TEMP 98.9
== END 2018-03-11 13:00 | disposition home or self-care (01) ==
LOC: PHEDA 14:09 → PHED 14:09 → PH3 21:07
PROVIDERS: ADMIT Hospitalist; ATTEND Hospitalist